=== PATIENT | male | born 1950 | race Caucasian/White ===

== ENCOUNTER 2019-09-26 05:06 | Inpatient (IN) ==
--- NOTE | 2019-08-15 15:03 | PAT Medication Instructions ---
Medication Instructions Date of Service August 15, 2019 Home Medications alfuzosin 10 mg PO QAM glucos sul [id number] [Glucosamine Chondroitin] 1 cap PO TID levocetirizine [Xyzal] 5 mg PO DAILY lithium carbonate 300 mg PO QID montelukast 10 mg PO QAM multivitamin 1 cap PO DAILY turmeric 500 mg PO QAM venlafaxine 37.5 mg PO HS STOP taking 2 weeks before surgery (or as soon as possible if surgery is within 2 weeks) glucos sul [id number] [Glucosamine Chondroitin] 1 cap PO TID turmeric 500 mg PO QAM DO NOT take the morning of surgery alfuzosin 10 mg PO QAM levocetirizine [Xyzal] 5 mg PO DAILY montelukast 10 mg PO QAM multivitamin 1 cap PO DAILY Take morning of surgery With a small sip of water, OTHERWISE NOTHING TO EAT OR DRINK AFTER MIDNIGHT: alfuzosin 10 mg PO QAM lithium carbonate 300 mg PO QID Take evening before surgery lithium carbonate 300 mg PO QID venlafaxine 37.5 mg PO HS Other Notes If you have any questions please call us at [phone] or [phone] or [phone] or [phone]
--- NOTE | 2019-08-16 11:46 | Anesthesiology Consultation ---
Date of Service August 16, 2019 Assessment & Plan (1) Encounter for pre-operative examination: Chart Review Chart Review: Acceptable Risk for Surgery ( pending surgeon-ordered PCP preop evaluation (Dr. Carrasquillo)) and Patient seen in Pre Admission Testing Teaching & Discussion Pre-Anesthesia Teaching/Discussion Notes: Instructed NPO after midnight before surgery,except medications with 15 cc of water. Medication instructions provided according to the PAT guidelines. History Surgery Operation Date: 09/19/19 09:25 Proposed Procedures p Right Total Knee Arthroplasty - Deepak Mcneil DO Height/Weight Height: 5 ft 11 in Weight: 108.4 kg Allergies Allergy/AdvReac Type Severity Reaction Status Date / Time No Known Allergies Allergy Verified 08/14/19 11:42 Medications Home Medications Medication Instructions Recorded Confirmed Last Taken alfuzosin 10 mg PO QAM 08/14/19 08/14/19 Unknown glucos sul [id number]-C-Mn 1 cap PO TID 08/14/19 08/14/19 Unknown [Glucosamine Chondroitin] levocetirizine [Xyzal] 5 mg PO DAILY 08/14/19 08/14/19 Unknown lithium carbonate 300 mg PO QID 08/14/19 08/14/19 Unknown montelukast 10 mg PO QAM 08/14/19 08/14/19 Unknown multivitamin 1 cap PO DAILY 08/14/19 08/14/19 Unknown turmeric 500 mg PO QAM 08/14/19 08/14/19 Unknown venlafaxine 37.5 mg PO HS 08/14/19 08/14/19 Unknown Past Medical History Medical History Anxiety Bipolar disorder Carpal tunnel syndrome Cervical stenosis of spine no ROM limitations Obesity Osteoarthritis Urinary frequency Exercise / Class Metabolic Activity II 4-5 Yardwork/Stairs/Walk up hill Past Surgical History Surgical History History of open reduction and internal fixation (ORIF) procedure left ankle ORIF Hx of arthroscopy of left knee Hx of arthroscopy of right knee Hx of colonoscopy Hx of hand surgery right hand trigger finger Hx of hernia repair inguinal hernia repair and umbilical when younger Hx of lumbar discectomy Hx of sinus surgery Hx of tonsillectomy Hx of varicose vein ligation both legs Past Anesthesia History No Hx of Anesthesia Complications (except hx post-op nausea) and No Family Hx of Anesthesia Complications History of PONV No Hx of Motion Sickness and History of PONV (+ nausea) Social History Smoking Status: Never smoker Do You Dip or Chew Tobacco: No Hx Alcohol Use: No Hx Substance Use: No substance use type: does not use Review of Systems Patient denies chest pain, shortness of breath, dyspnea on exertion, cough, wheezing, palpitations. Physical Exam Vital Signs VITALS BP 130/82 P 80 TEMP 97.9 SP02 95%RA RESP 16 PHYSICAL Full neck and c-spine range of motion. Full TMJ range of motion. TMD 3 finger breaths Mallampati Score 3 Dentition: intact Lungs: clear throughout to auscultation Cardiac: regular rate and rhythm, no murmurs noted Spine: normal Carotid arteries: negative bruit Extremities: no edema Testing Laboratory Results 08/16/19 12:24 PT 11.0 Seconds (9.0-12.0) 08/16/19 12:24 INR 1.1 (0.9-1.1) 08/16/19 12:24 APTT 27.5 Seconds (21.0-31.0) 08/16/19 12:24 Hemoglobin A1c 5.4 % (4.5-5.6) 08/16/19 12:24 Urine Color Yellow 08/16/19 Unknown Urine Appearance Clear (Clear) 08/16/19 Unknown Urine pH 5.0 (4.5-7.5) 08/16/19 Unknown Ur Specific [place] 1.019 (1.000-1.030) 08/16/19 Unknown Urine Protein Negative (Negative) 08/16/19 Unknown Urine Glucose (UA) Negative (Negative) 08/16/19 Unknown Urine Ketones Negative (Negative) 08/16/19 Unknown Urine Nitrite Negative (Negative) 08/16/19 Unknown Ur Leukocyte Esterase Trace (Negative) H 08/16/19 Unknown Urine WBC (Auto) 1-5 /hpf (0-5) 08/16/19 Unknown Urine RBC (Auto) 0-4 /hpf (0-4) 08/16/19 Unknown U Hyaline Cast (Auto) 1-5 /lpf (0-5) 08/16/19 Unknown U Epithel Cells (Auto) 0-5 /lpf (0-5) 08/16/19 Unknown Urine Bacteria (Auto) Negative (Negative) 08/16/19 Unknown Blood Type A Positive 08/16/19 12:24 Antibody Screen NEGATIVE 08/16/19 12:24 Electrocardiogram Date: 08/16/19 Findings: + NSR @ (66) Chest X-Ray Date: 08/16/19 The heart is top normal for projection. The mediastinal contour is within normal limits. The lungs and pleural spaces are clear. No active disease in the chest.
--- NOTE | 2019-08-16 12:47 | XRay Report ---
TWO VIEW CHEST CLINICAL HISTORY: Preoperative examination. FINDINGS: PA and lateral chest radiographs are obtained No prior studies are available for comparison at the time of dictation. The heart is top normal for projection. The mediastinal contour is within normal limits. The lungs and pleural spaces are clear. There is no pneumothorax. The bony thorax ap pears intact. IMPRESSION: No active disease in the chest. Electronically signed by: Sudeep Dale M.D. 08/16/2019 12:45 PM
[2019-08-16 13:15] LABS: Basophils # (auto) 0.02 K/uL (0-0.2); Basophils % (auto) 0.4 %; Eosinophils # (auto) 0.12 K/uL (0-0.5); Eosinophils % (auto) 2.6 %; Hematocrit (blood only) 44.7 % (42-52); Hemoglobin 15.3 g/dL (14.0-18.0); Immature Granulocytes # (auto) 0.01 K/uL (0.00-0.02); Immature Granulocytes % (auto) 0.2 %; Lymphocytes % (auto) 28.4 %; Mean Corpuscular Hemoglobin 30.8 pg (25-34); Mean Corpuscular Hgb Conc 34.2 g/dL (32-36); Mean Corpuscular Volume 89.9 fL (80-100); Mean Platelet Volume 10.6 fL (7.4-10.4); Monocytes # (auto) 0.43 K/uL (0.11-0.59); Monocytes % (auto) 9.4 %; Neutrophils # (auto) 2.69 K/uL (1.4-6.5); Platelet Count 150 K/uL (130-400); RDW Coefficient of Variation 13.4 % (11.5-14.5); RDW Standard Deviation 43.7 fL (36.4-46.3); Red Blood Count 4.97 M/uL (4.7-6.1); White Blood Count 4.57 K/uL (4.8-10.8)
[2019-08-16 13:27] LABS: Appearance Urine Clear (Clear); Bacteria Urine Automated Negative (Negative); Bilirubin Urine Negative (Negative); Blood Urine Negative (Negative); Color Urine Yellow; Epithelial Cell Urine Auto 0-5 /lpf (0-5); Glucose Urine UA Negative (Negative); Ketones Urine Negative (Negative); Leukocyte Esterase Urine Trace (Negative); Nitrite Urine Negative (Negative); Protein Urine Negative (Negative); RBC Urine Automated 0-4 /hpf (0-4); Specific Gravity Urine 1.019 (1.000-1.030); Urobilinogen Urine Negative (Negative)
[2019-08-16 13:27] LABS: INR 1.1 (0.9-1.1); Partial Thromboplastin Time 27.5 Seconds (21.0-31.0)
[2019-08-16 13:39] LABS: Estimated Average Glucose 108 mg/dl; Hemoglobin A1C 5.4 % (4.5-5.6)
--- NOTE | 2019-09-24 11:15 | History & Physical Report ---
Date of Service September 24, 2019 Assessment & Plan (1) Degenerative joint disease of knee, right: I have indicated the patient for right total knee replacement. The risks, benefits and complications of surgery were explained to the patient which include but not limited to infection, acute blood loss, DVT/PE, injury to nerves, vessels, bone, soft tissue, arthrofibrosis, chronic pain, failure of the prosthesis, knee dislocation, leg length discrepancy, need for additional surgery, cardiac and pulmonary events and . The patient wished to proceed with surgery and informed consent was obtained at this time. We will plan for ASA BID post-operatively for DVT prophylaxis. Upon discharge the patient will be discharged home with home health services. Appropriate clearances by PCP were obtained. History of Present Illness Chief Complaint: Right knee pain/djd Primary Care Provider: Jim Llanes MD The patient is a 68 year old male who presents with complaints of severe right knee pain and DJD. The patient has failed outpatient conservative treatments to this point which included NSAIDs, bracing, IA corticosteroid injection, home exercise/walking program. The patient's pain and limited function have progressed to the point where they severely hinder their activities of daily living and they no longer tolerate exercise programs. They are requesting to proceed with total knee replacement surgery. Allergies Allergy/AdvReac Type Severity Reaction Status Date / Time No Known Allergies Allergy Verified 09/26/19 05:44 Home Medications Home Medications Medication Instructions Recorded Confirmed Type alfuzosin 10 mg PO QAM 08/14/19 09/26/19 History glucos sul [id number]-C-Mn 1 cap PO TID 08/14/19 09/26/19 History [Glucosamine Chondroitin] levocetirizine [Xyzal] 5 mg PO DAILY 08/14/19 09/26/19 History lithium carbonate 300 mg PO QID 08/14/19 09/26/19 History montelukast 10 mg PO QAM 08/14/19 09/26/19 History multivitamin 1 cap PO DAILY 08/14/19 09/26/19 History turmeric 500 mg PO QAM 08/14/19 09/26/19 History venlafaxine 37.5 mg PO HS 08/14/19 09/26/19 History Past Med/Surg History Medical History Anxiety Bipolar disorder Carpal tunnel syndrome Cervical stenosis of spine no ROM limitations Obesity Osteoarthritis Urinary frequency Surgical History History of open reduction and internal fixation (ORIF) procedure left ankle ORIF Hx of arthroscopy of left knee Hx of arthroscopy of right knee Hx of colonoscopy Hx of hand surgery right hand trigger finger Hx of hernia repair inguinal hernia repair and umbilical when younger Hx of lumbar discectomy Hx of sinus surgery Hx of tonsillectomy Hx of varicose vein ligation both legs Social History Preferred Language: Czech Communication Ability: Effective Tailercpa Required: No Beliefs That Will Affect Care: None Current Living Situation: Spouse Other Information That Helps Us Care for You: No Feels Safe at Home: Yes Safety Concerns: Feels Safe At This Time Smoking Status: Never smoker Do You Dip or Chew Tobacco: No ; Second Hand Exposure: No ; Tobacco Cessation Education Requested by Patient: No Hx Alcohol Use: No Hx Substance Use: No Review of Systems Review of Systems: All systems reviewed & are unremarkable except as noted in HPI & below Constitutional: as per Subjective / HPI Physical Exam Physical Exam: LLE NVSI +EHL/FHL/TA/GS SILT grossly, +2 DP pulse, compartments soft NT, limited painful ROM 0-125 degrees flexion, +crepitus. Constitutional: WD/WN, vitals as above Eyes: PERRL, conjunctivae normal, anicteric sclerae ENMT: external ear and nose normal, oropharynx normal Neck: trachea midline, no thyromegaly Respiratory: normal respiratory effort, lungs clear to auscultation Cardiovascular: RRR, no murmur, no edema Gastrointestinal (Abdomen): normal bowel sounds, soft, nontender, no hepatosplenomegaly Musculoskeletal: no cyanosis or clubbing, extremities motor strength 5/5 Skin: no rashes, warm and dry Neurologic: patellar DTR's 2+ bilat, sensation intact Psychiatric: A+Ox3, euthymic affect Lymphatic: no cervical or axillary lymphadenopathy Results & Data Diagnostic Findings Multiple views of the knee demonstrates severe tricompartmental DJD with complete loss of the medial and patellofemoral joint space. +osteophytes, +sclerosis, +subchondral cysts.
[2019-09-26] MEDS ORDERED: FAMOTIDINE 20 MG TAB PO SCH (06:00)
[2019-09-26] MEDS ORDERED: LR 500ML BOLUS, THEN 15ML/HR IV SCH (06:00)
[2019-09-26] MEDS ORDERED: METOCLOPRAMIDE HCL 10 MG TABLET PO SCH (06:00)
[2019-09-26] MEDS ORDERED: dexAMETHasone 4 MG TAB PO SCH (06:00)
[2019-09-26] MEDS ORDERED: ROPIVACAINE 0.5% HCL/PF 150 MG, BUPIVACAINE 0.5% MPF 30 ML, EPINEPHrine 30MG/30ML (OR U... INSTIL SCH (06:00)
[2019-09-26] MEDS ORDERED: TRANEXAMIC ACID 1,000 MG **IV Pre-op IV SCH (06:00)
[2019-09-26] MEDS ORDERED: CeleBREX 200 MG CAP PO SCH (06:00)
[2019-09-26] MEDS ORDERED: TRANEXAMIC ACID 1,000 MG **IV Intra-op IV SCH (06:00)
[2019-09-26] MEDS ORDERED: ACETAMINOPHEN 500 MG TAB PO SCH (06:00)
[2019-09-26] MEDS ORDERED: CEFAZOLIN 2000MG 2,000 MG/15 ML SYR IV SCH (06:00)
[2019-09-26] MEDS ORDERED: BUPIVACAINE 0.5 % 5 MG/1 ML PF 10ML VIAL ONE (06:15)
[2019-09-26] MEDS ORDERED: ROPIVACAINE 0.5% 5 MG/ML 30 ML VIAL ONE (06:16)
[2019-09-26] MEDS ORDERED: fentaNYL citrate 100 MCG/2 ML VIAL ONE (06:54)
[2019-09-26] MEDS ORDERED: PROPOFOL IV EMULSION 10 MG/ML 20 ML VIAL IV ONE ×3 (06:54→08:43)
[2019-09-26] MEDS ORDERED: ePHEDrine sulfate 50 MG/ML SYR ONE (06:54)
[2019-09-26] MEDS ORDERED: MIDAZOLAM HCL 1 MG/ML 2ML VIAL ONE (06:54)
[2019-09-26] MEDS ORDERED: PHENYLEPHRINE 100MCG/ML 5ML SYR ONE (06:54)
[2019-09-26] MEDS ORDERED: LIDOCAINE HCL 2% 2 ML VIAL/AMP(20MG/ML) INFIL ONE (06:54)
--- NOTE | 2019-09-26 06:59 | History & Physical Bridge Note ---
Date of Service September 26, 2019 History & Physical Bridge Note I have examined the patient, reviewed the History & Physical and in the interval since the performance of the History & Physical I have noted the following changes of clinical significance: no changes noted
[2019-09-26] MEDS ORDERED: BACITRACIN INJ 50,000 UNIT VIAL ONE (07:01)
[2019-09-26] MEDS ORDERED: ORTHO JOINT ANESTHETIC ONE (07:02)
[2019-09-26] MEDS ORDERED: ePHEDrine sulfate 50 MG/ML AMP IV PRN (07:23)
[2019-09-26] MEDS ORDERED: ONDANSETRON INJ 2 MG/ML 2 ML VIAL IV PRN ×2 (07:23→10:44)
[2019-09-26] MEDS ORDERED: ATROPINE SULFATE 0.1 MG/ML 10ML SYR IV PRN (07:23)
[2019-09-26] MEDS ORDERED: KETOROLAC 30 MG/ML VIAL IV PRN (07:23)
[2019-09-26] MEDS ORDERED: HYDROmorphone INJ 1 MG/ML SYRINGE IV PRN (07:23)
--- NOTE | 2019-09-26 09:07 | Post Operative Brief Note ---
Immediate Post Op Note v1 Date of Surgery September 26, 2019 Pre & Post Diagnosis Operation Date: 09/26/19 07:15 Pre-Op Diagnosis: RIGHT KNEE OSTEOARTHRITIS Post-Op Diagnosis: RIGHT KNEE OSTEOARTHRITIS I identified the patient and participated in the time-out.: Yes Procedure Operation Date: 09/26/19 07:15 Actual Procedures p Right Total Knee Arthroplasty(Right) - Deepak Mcneil DO Surgeon Deepak Mcneil DO Cell Tuber Machine Andrew Artis Estimated Blood Loss 55 Findings Consistent with Post-Op Diagnosis Fluids 1500 cc LR Specimens proximal tibia, distal femur bone fragments Anesthesia Type Spinal MAC Complications none Disposition Disposition: Recovery Room Overlapping Procedure I was present for: the critical portions of procedure. I was immediately available: during the entire case. Back up surgeon: was not required during procedure.
--- NOTE | 2019-09-26 09:10 | Operative Report ---
Post Operative Report Pre & Post Diagnosis Operation Date: 09/26/19 07:15 Pre-Op Diagnosis: RIGHT KNEE OSTEOARTHRITIS Post-Op Diagnosis: RIGHT KNEE OSTEOARTHRITIS I identified the patient and participated in the time-out.: Yes Procedure Operation Date: 09/26/19 07:15 Actual Procedures p Right Total Knee Arthroplasty(Right) - Deepak Mcneil DO Surgeon Deepak Mcneil DO Tents Assembler Andrew Artis Estimated Blood Loss 55 Findings Consistent with Post-Op Diagnosis Specimens 1500 cc LR Anesthesia Type Spinal MAC Complications none Disposition Disposition: Recovery Room Indications The patient is a 68-year-old male presents with long history of severe right knee tricompartmental DJD and failed outpatient conservative treatments including NSAIDs, bracing, injections and home walking/exercise program. The patient's symptoms have progressed to the point where it has been difficult to perform normal activities of daily living. I have indicated the patient for a right total knee arthroplasty, the risks and benefits and complications of the procedure include but are not limited to infection bleeding damage to bone, nerves, vessels, surrounding soft tissue, blood clots, loss of function, leg length discrepancy, dislocation, failure of the components, need for additional surgery and . The patient wished to proceed with surgery at this time and informed consent was obtained. Appropriate clearances were obtained. Description of Procedure COMPONENTS USED: Ralph persona knee system: Femur size 11, Tibia size H tibial articulating surface 10 PS, Patella 35 mm Following induction of spinal anesthesia, a tourniquet was applied to the proximal aspect of the thigh and the patient's right leg was prepped and draped in the usual sterile manner. A timeout was performed, patient identified and site leilani confirmed. Appropriate pre-operative IV antibiotics were given. The limb was exsanguinated with an Esmarch bandage and tourniquet was inflated to 300 mmHg. A longitudinal midline incision was made over the anterior knee. Subcutaneous tissue was sharply dissected down to fascia. Electrocautery was used for hemostasis. Next a parapatellar arthrotomy was performed. Patella was everted and the knee was flexed. A Camacho retractor was used to expose the synovium above on the anterior aspect of the femur and removed down to bone. Next, the anterior fat pad was removed to aid in visualization. The medial face of the tibia was cleared of soft tissue first with a Bovie and a campos elevator. This tissue was retracted posteriorly using a blunt Hohmann. Next, the extra-medullary tibial cutting guide was placed to the anterior aspect of the tibia. The tibia resection level was set taking 2mm from the defective tibial condyle. Resection depth was once again confirmed with caty wing. The medial and lateral collateral ligament was protected with two Hohmann retractors. The tibia guide was removed and proximal tibial bone fragment removed utilizing straight osteotome, electrocautery and Ryan. Next, the distal femur intramedullary canal was accessed utilizing the step drill. The intramedullary distal femur cutting guide was placed into the canal and pinned into place. The distal femur was cut on the 5 degree +0 setting. Next the cutting guide was removed and the femur was sized. Care was taken to ensure appropriate egg processor all rotation and 3 degree holes were drilled. A size 11 4-in-1 cutting block was placed on the distal end of the femur and secured into place with two short headed screws. Two bent Hohmann retractors were placed to protect the medial and lateral collateral ligaments. The oscillating saw was used to cut anterior, posterior, anterior chamfer and posterior chamfer. The four and one cutting block was removed and bone fragments excised. Laminar steamer blocker was placed laterally and the ACL and PCL were removed followed by the medial meniscus and posterior medial osteophytes. Aquamantys was utilized for any posterior medial bleeders and Orthomix injected into the posterior medial capsule. A laminar steamer blocker was then placed in the medial compartment and the lateral meniscus and posterior osteophytes were removed. Aquamantys was utilized for any posterior lateral bleeders and Orthomix injected into the posterior lateral capsule. Next, drop bryson and spacer block were placed with the leg in flexion and extension to assess alignment and flexion/extension gaps. Next, the proximal tibia was assessed and two bent Hohmans were placed medial and lateral to aid in visualization. The appropriate tibia size and rotation was selected and a size H tibial plate was pinned into place with appropriate rotation. Preparation of the tibia was completed utilizing the matching tibial drill and broach. I then turned my attention back to the distal femur in a trial femoral component was impacted into place. Appropriate femoral width was assessed and selected. Next the femur PS box cut guide was placed and cut made with the reciprocal saw and the PS box provisional placed. A trial size 10 PS tibia articular tray was placed and varus-valgus balance assessed in 0 degrees of extension and 30, 60 and 90 degrees of flexion. A final tibial articular surface size 10 PS was chosen. Assess was gained to the patella and caliper utilized to measure width. The patella reamer was utilized and remaining bone removed with oscillating saw. A size 35 mm patella button was selected and the patella pegs drilled. Trial patella button was placed and tracking was assessed. The knee was found to be well balanced, well aligned with excellent patella tracking. The trials were removed and final components were obtained and assembled. The knee was irrigated copiously with sterile saline solution mixed with bacitracin. Access to the proximal tibia was once again obtained utilizing to the Hohmans and the proximal tibia and distal femur were dried with lap sponges. The final components were cemented into place and all excess cement was removed. A trial tibial articular surface was placed while cemented hardened. Knee stability was once again assessed and the final component inserted. A Betadine soak was performed. After 3 minutes, the hip was once more irrigated with copious sterile saline solution with bacitracin. The knee was injected with the remaining Orthomix which includes a combination of Ropivicaine 0.5% 150mg, Bupivicaine 0.5%/Epinephrine 1:200,000 30ml, Toradol 30mg, Dexamethasone 4mg, Ketamine 10mg, Clonidine 100mcg and NSS 30ml solution. The capsulotomy was closed with #1 Vicryl followed by subcutaneous closure with 2-0 Vicryl suture and a 3-0 V-lock suture. Skin closure was performed using Prineo dressing followed by Telfa, 4 x 4s and adolfo wrap. Tourniquet was deflated at 96 minutes. The patient tolerated the procedure well and was taken to the PACU in stable condition. Due to the complex nature of the procedure, the entire surgery was performed with the operational assistance of Andrew artis PA-C. The assistant hall director, under direct supervision, was involved in the actual performance of all aspects of the surgical procedure including patient positioning, hemostasis, tissue retraction, instrument management and wound closure. I attest to the content of the Intraoperative Record and any orders documented therein. Any exceptions are noted below.
--- NOTE | 2019-09-26 10:01 | XRay Report ---
XR knee RT 1 or 2V routine CLINICAL HISTORY: Surgical Post Op COMPARISON: None. DISCUSSION: There are postsurgical changes of a total right knee arthroplasty and patellar resurfacin g. The femoral tibial components appear well seated. There is air present within the soft tissues con sistent with recent surgery. Surgical clips are visualized within the distal thigh. IMPRESSION: Postsurgical changes of a total right knee arthroplasty. ACT 112: Negative or not required by law. Electronically signed by: Dragan Felix M.D. 09/26/2019 10:00 AM
--- NOTE | 2019-09-26 10:12 | Anesthesiology Progress Note ---
Date of Service September 26, 2019 Anesthesia Post Procedure Vital Signs Vital Signs: Temp Pulse Resp BP Pulse Ox 09/26/19 10:05 89 15 121/78 96 09/26/19 09:55 86 14 110/68 98 09/26/19 09:45 99 H 15 107/65 99 09/26/19 09:38 36.1 C L 94 H 14 112/77 98 09/26/19 06:17 36.6 C 71 20 148/92 H 95 Transfer of Care Handoff Completed per policy Notes Mental Status: alert / awake / arousable Patient Amnestic to Procedure: Yes Nausea / Vomiting: adequately controlled Pain: adequately controlled Airway Patency, RR, SpO2: stable & adequate BP & HR: stable & adequate Hydration State: stable & adequate Neuraxial Anesthesia: was administered and sensory block is resolving Anesthetic Complications: no major complications apparent
[2019-09-26] MEDS ORDERED: HYDROmorphone INJ 0.5 MG/0.5 ML SYR IV PRN (10:44)
[2019-09-26] MEDS ORDERED: bisacodyL 10 MG SUPP PR PRN (10:44)
[2019-09-26] MEDS ORDERED: NALOXONE HCL 0.4 MG/1 ML VIAL/CARP IV PRN (10:44)
[2019-09-26] MEDS ORDERED: METOCLOPRAMIDE HCL INJ 5 MG/ML 2 ML VIAL IV PRN (10:44)
[2019-09-26] MEDS ORDERED: MAGNESIUM HYDROXIDE SUSP 30 ML UDC PO PRN (10:44)
[2019-09-26] MEDS: SODIUM CHLORIDE 0.9% 1000ML 1,000 ML IV SCH ×2 (11:42→20:59)
[2019-09-26] MEDS: KETOROLAC TROMETHAMINE 15 MG/ML VIAL IV SCH ×3 (11:45→23:18)
[2019-09-26] MEDS: LITHIUM CARBONATE 300 MG TAB PO SCH ×3 (13:01→21:03)
[2019-09-26] MEDS: ACETAMINOPHEN 500 MG TAB PO SCH ×2 (13:01→21:05)
[2019-09-26] MEDS: CEFAZOLIN 2000MG 2,000 MG/15 ML SYR IV SCH ×2 (17:52→22:19)
--- NOTE | 2019-09-26 19:06 | Orthopedic Progress Note ---
Date of Service September 26, 2019 Assessment & Plan (1) Degenerative joint disease of knee, right: s/p R TKA -ancef x 24 -DVT ppx: SCDs, TEDs, ASA BID -WBAT RLE -PT/OT -PO XR demonstrates a well aligned well fixed prothesis without fracture/dislocation -am labs -DC planning Subjective Post Operative Progress Note Patient seen sitting up in bed, comfortable, denies complaints, pain well controlled, no acute issues. Review of Systems Review of Systems: All systems reviewed & are unremarkable except as noted in HPI & below Constitutional: as per Subjective / HPI Physical Exam Physical Exam: RLE NVSI +EHL/FHL/TA/GS SILT grossly, +2 DP pulse, compartments soft NT, dressing cdi. Constitutional: WD/WN, vitals as above Results & Data Vital Signs (Past 12 Hours) Vital Signs Temp Pulse Pulse Resp BP BP Pulse Ox 09/26/19 16:20 36.4 C L 99 H 18 129/78 93 09/26/19 13:33 36.5 C 82 17 112/69 95 09/26/19 12:35 36.7 C 87 16 110/71 96 09/26/19 11:32 36.7 C 86 18 118/79 95 09/26/19 11:05 36.7 C 86 17 134/72 95 09/26/19 10:35 36.3 C L 80 16 124/75 95 09/26/19 10:25 78 15 124/77 97 09/26/19 10:15 36.2 C L 84 19 123/81 96 09/26/19 10:05 89 15 121/78 96 09/26/19 09:55 86 14 110/68 98 09/26/19 09:45 99 H 15 107/65 99 09/26/19 09:38 36.1 C L 94 H 14 112/77 98
[2019-09-26] MEDS ORDERED: VENLAFAXINE HCL XR 37.5 MG CAPXR PO SCH (21:00)
[2019-09-26] MEDS ORDERED: SENNA 8.6 MG TAB PO SCH (21:00)
[2019-09-26] MEDS: DOCUSATE SODIUM 100 MG CAP PO SCH (21:03)
[2019-09-27 05:47] LABS: Hematocrit (blood only) 37.5 % (42-52); Hemoglobin 12.8 g/dL (14.0-18.0); Mean Corpuscular Hemoglobin 30.5 pg (25-34); Mean Corpuscular Hgb Conc 34.1 g/dL (32-36); Mean Corpuscular Volume 89.5 fL (80-100); Platelet Count 157 K/uL (130-400); RDW Coefficient of Variation 13.6 % (11.5-14.5); RDW Standard Deviation 44.5 fL (36.4-46.3); Red Blood Count 4.19 M/uL (4.7-6.1); White Blood Count 12.97 K/uL (4.8-10.8)
[2019-09-27] MEDS: KETOROLAC TROMETHAMINE 15 MG/ML VIAL IV SCH (06:11)
[2019-09-27] MEDS: ACETAMINOPHEN 500 MG TAB PO SCH ×2 (06:11→13:11)
[2019-09-27 06:26] LABS: BUN Creatinine Ratio 18.4 (10-20); Calcium 8.5 mg/dl (8.5-10.1); Creatinine Clr Calc Pharmacy 86.2 ml/min; Est GFR (African American) 84.3; Est GFR (Non-African American) 72.8
--- NOTE | 2019-09-27 08:00 | Anesthesiology Progress Note ---
Date of Service September 27, 2019 Anesthesia Post Procedure Vital Signs Vital Signs: Temp Pulse Pulse Resp BP BP Pulse Ox 09/27/19 07:39 36.8 C 63 14 136/80 97 09/27/19 03:41 36.7 C 78 18 133/76 94 09/26/19 23:33 36.6 C 85 18 127/74 94 09/26/19 20:10 37.2 C 86 16 109/72 93 09/26/19 16:20 36.4 C L 99 H 18 129/78 93 09/26/19 13:33 36.5 C 82 17 112/69 95 09/26/19 12:35 36.7 C 87 16 110/71 96 09/26/19 11:32 36.7 C 86 18 118/79 95 09/26/19 11:05 36.7 C 86 17 134/72 95 09/26/19 10:35 36.3 C L 80 16 124/75 95 09/26/19 10:25 78 15 124/77 97 09/26/19 10:15 36.2 C L 84 19 123/81 96 09/26/19 10:05 89 15 121/78 96 09/26/19 09:55 86 14 110/68 98 09/26/19 09:45 99 H 15 107/65 99 09/26/19 09:38 36.1 C L 94 H 14 112/77 98 Pain Intensity Right Knee: Pain Intensity: 2 Notes Mental Status: alert / awake / arousable and participated in evaluation Patient Amnestic to Procedure: Yes Nausea / Vomiting: adequately controlled Pain: adequately controlled Airway Patency, RR, SpO2: stable & adequate BP & HR: stable & adequate Hydration State: stable & adequate Neuraxial Anesthesia: was administered and sensory block resolved Anesthetic Complications: no major complications apparent and Pt Satisfied with anesthetic care
[2019-09-27] MEDS: DOCUSATE SODIUM 100 MG CAP PO SCH (08:38)
[2019-09-27] MEDS: OXYCODONE HCL IR 5 MG TAB (IMMEDIATE RELEASE) PO PRN ×2 (08:38→13:12)
[2019-09-27] MEDS: LITHIUM CARBONATE 300 MG TAB PO SCH ×2 (08:39→13:11)
[2019-09-27] MEDS ORDERED: ALFUZOSIN HCL 10 MG TAB PO SCH (09:00)
[2019-09-27] MEDS ORDERED: MULTIVITAMIN TAB PO SCH (09:00)
[2019-09-27] MEDS ORDERED: MONTELUKAST SODIUM 10 MG TABLET PO SCH (09:00)
[2019-09-27] MEDS ORDERED: CeleBREX 200 MG CAP PO SCH (09:00)
[2019-09-27] MEDS ORDERED: ASPIRIN 325 MG ECTAB PO SCH (09:00)
--- NOTE | 2019-09-27 12:50 | Orthopedic Progress Note ---
Date of Service September 27, 2019 Assessment & Plan (1) Degenerative joint disease of knee, right: s/p R TKA POD#1 -ancef x 24 -DVT ppx: SCDs, TEDs, ASA BID -WBAT RLE -PT/OT -PO XR demonstrates a well aligned well fixed prothesis without fracture/dislocation -am labs - hgb 12.8 -DC planning - DC home with HH Subjective Post Operative Progress Note Patient seen sitting up in bed, comfortable, denies complaints, pain well controlled, no acute issues. Denies F/C/N/V/SOP/CP. Review of Systems Review of Systems: All systems reviewed & are unremarkable except as noted in HPI & below Constitutional: as per Subjective / HPI Physical Exam Physical Exam: RLE NVSI +EHL/FHL/TA/GS SILT grossly, +2 DP pulse, compartments soft NT, dressing cdi. Constitutional: WD/WN, vitals as above Results & Data Vital Signs (Past 12 Hours) Vital Signs Temp Pulse Pulse Resp BP BP Pulse Ox 09/27/19 11:36 36.8 C 65 16 138/82 95 09/27/19 07:39 36.8 C 63 14 136/80 97 09/27/19 03:41 36.7 C 78 18 133/76 94 Laboratory Results 09/27/19 09/27/19 Range/Units 05:31 05:31 WBC 12.97 H (4.8-10.8) K/uL RBC 4.19 L (4.7-6.1) M/uL Hgb 12.8 L (14.0-18.0) g/dL Hct 37.5 L (42-52) % MCV 89.5 (80-100) fL MCH 30.5 (25-34) pg MCHC 34.1 (32-36) g/dL RDW Std Deviation 44.5 (36.4-46.3) fL RDW Coeff of Alice 13.6 (11.5-14.5) % Plt Count 157 (130-400) K/uL MPV 10.0 (7.4-10.4) fL Sodium 139 (136-145) mmol/L Potassium 4.0 (3.5-5.1) mmol/L Chloride 111 H (98-107) mmol/L Carbon Dioxide 24 (21-32) mmol/L Anion Gap 4.0 (3-11) BUN 20 H (7-18) mg/dl Creatinine 1.06 (0.6-1.4) mg/dl Est Cr Clr Drug Dosing 86.2 ml/min Est GFR ( Amer) 84.3 Est GFR (Non-Af Amer) 72.8 BUN/Creatinine Ratio 18.4 (10-20) Glucose 130 H (70-99) mg/dl Calcium 8.5 (8.5-10.1) mg/dl
== END 2019-09-27 14:08 | disposition home health service (06) | DRG 470 ==
LOC: ASU 05:06 → 3E 09:41